=== PATIENT | male | born 1975 | race Caucasian/White ===

== ENCOUNTER 2018-09-25 10:59 | Emergency (ER) | payer SELFPAY ==
[~2018-09-25] VITALS: Ht 167.6 cm; Wt 98.4 kg
[2018-09-25 11:23] VITALS: BP 118/65; PULSE 74; RESP 20; Ht 167.6 cm; Wt 98.4 kg
[2018-09-25] MEDS ORDERED: LIDOCAINE 1% (MDV) 20 ML INJ SC ONE (14:30)
[2018-09-25] MEDS ORDERED: ACETAMINOPHEN 325 MG TAB PO ONE (14:30)
[2018-09-25] MEDS ORDERED: DOXY100T21 PO (14:51)
[2018-09-25] MEDS ORDERED: ACET1TAB40 PO (14:51)
--- NOTE | 2018-09-25 14:55 | ERD ---
ER Documentation Chief Complaint Chief Complaint Complains of left leg and foot pain x 3 days HPI 43-year-old male presents with pain in his left foot for the last few days which has been worsening. He has had similar pain and a possible bump on the plantar aspect of the left foot for last few months. He is thinking he may have stepped on a small piece of glass. He did have an x-ray originally which did not show foreign body but symptoms have worsened. ROS All systems reviewed and are negative except as per history of present illness. Medications Home Meds Active Scripts Doxycycline Monohydrate* (Doxycycline Monohydrate*) 100 Mg Tablet, 100 MG PO BID for 7 Days, TAB Prov:MANJULA DEGROOT MD 09/25/18 Acetaminophen with Codeine (Acetaminophen-Cod #3 Tablet) 1 Each Tablet, 1 TAB PO Q6H PRN for PAIN, #7 TAB Prov:MANJULA DEGROOT MD 09/25/18 PMhx/Soc Medical and Surgical Hx: pt denies Medical Hx, pt denies Surgical Hx FmHx Family History: No diabetes, No coronary disease, No other Physical Exam Vitals Vital Signs Date Temp Pulse Resp B/P (MAP) Pulse Ox O2 O2 Flow FiO2 Time Delivery Rate 09/25/18 99.7 74 20 118/65 96 11:23 (82) Physical Exam Const: No acute distress Head: Atraumatic Eyes: Normal Conjunctiva ENT: Normal External Ears, Nose and Mouth. Neck: Full range of motion. No meningismus. Resp: Clear to auscultation bilaterally Cardio: Regular rate and rhythm, no murmurs Abd: Soft, non tender, non distended. Normal bowel sounds Skin: No petechiae or rashes Back: No midline or flank tenderness Ext: No cyanosis, or edema. Tender with non-erythematous swelling on the plantar aspect left foot around the second metatarsal phalangeal joint area. Neur: Awake and alert Psych: Normal Mood and Affect Results 24 hrs Current Medications Medications Dose Sig/Manuela Start Time Status Last (Trade) Ordered Route PRN Stop Time Admin Dose Reason Admin 650 mg ONCE ONCE 09/25/18 DC 09/25/18 Acetaminophen PO 14:30 14:16 (Tylenol 09/25/18 14:31 Tab) Lidocaine 20 ml ONCE ONCE 09/25/18 DC 09/25/18 (Xylocaine SC 14:30 14:17 1% (Mdv) 20 09/25/ 14:31 ml) Procedures/MDM Patient presents with swelling and tenderness on the bottom of his left foot for the last few months. Clinically it is consistent with retained subcutaneous foreign body or plantar wart. No significant signs of infection. X-ray left foot 3V Interpreted by me: Bones: No fracture Joints: No dislocation Foreign body: None. Impression-normal left foot x-ray Empiric debridement and exploration will be performed with patient consent. Procedure note-left foot was prepped with Betadine. 2 cc lidocaine was used for local filtration. Callus was debrided with a scalpel. The lesion was debrided down to subcutaneous area until punctate bleeding was obtained. Area was probed without appreciable findings to suggest foreign body. She tolerated procedure well and the wound was dressed. Patient presents with left foot pain of uncertain etiology. Differential is most likely subclinical small foreign body not seen on x-ray plan at work. He will discharged home with warm soaks, recommendations for podiatry evaluation for persistent symptoms. There is no signs of cellulitis, fracture, di slocation, obvious retained radiopaque foreign body. Departure Diagnosis: Primary Impression: Foot pain Laterality: left Qualified Codes: M79.672 - Pain in left foot Condition: Stable Patient Instructions: Foreign Body, Soft Tissue [Not Removed], Plantar Warts Referrals: JAMISON MAGAÑA ABID N DPM HAGOPJANIAN, ARMEN DPM Additional Instructions: Uncertain cause of symptoms. May be subclinical foreign body or plantar wart. Recommend podiatry for persistent symptoms. Warm soaks at home and return for redness, fevers, new symptoms. MANJULA DEGROOT MD Sep 25, 2018 14:55
== END 2018-09-25 15:26 | disposition home or self-care (01) ==
LOC: FTE 10:59
DX: M79.672 Pain in left foot (principal)

== ENCOUNTER 2019-01-02 11:44 | Emergency (ER) | payer MEDICAID ==
[~2019-01-02] VITALS: Wt 94.2 kg
[~2019-01-02 11:44] MED LIST: ACET1TAB40 PO; DOXY100T21 PO
[2019-01-02 11:47] VITALS: BP 132/71; PULSE 75; RESP 17
[2019-01-02] MEDS ORDERED: LIDOCAINE 1%/EPI 30 ML INJ INJ STA (12:48)
[2019-01-02] MEDS ORDERED: ACETAMINOPHEN 325 MG TAB PO ONE (13:00)
[2019-01-02] MEDS ORDERED: ACET1TAB40 PO (13:54)
[2019-01-02] MEDS ORDERED: CEPH-443 PO (13:54)
--- NOTE | 2019-01-02 13:57 | ERD ---
ER Documentation Chief Complaint Chief Complaint right foot pain x1 month, redness reported HPI 43-year-old male presents with some redness and pain in the area of the right foot worsening over the last 1 to 2 weeks. He was seen by me previously and had an additional similar complaint of possible foreign body sensation in the bottom of the foot. We are unable to locate any foreign body by x-ray or blunt dissection. He may have expressed a small amount of glass as the wound healed on the previous lesion. This lesion feels similar to the previous complaint although in a different area. Patient denies known puncture wound or foreign body. Tetanus up-to-date. ROS All systems reviewed and are negative except as per history of present illness. Medications Home Meds Active Scripts Cephalexin* (Keflex*) 500 Mg Capsule, 500 MG PO QID for 5 Days, CAP Prov:MANJULA DEGROOT MD 01/02/19 Acetaminophen with Codeine (Acetaminophen-Cod #3 Tablet) 1 Each Tablet, 1 TAB PO Q6H PRN for PAIN, #10 TAB Prov:MANJULA DEGROOT MD 01/02/19 Doxycycline Monohydrate* (Doxycycline Monohydrate*) 100 Mg Tablet, 100 MG PO BID for 7 Days, TAB Prov:MANJULA DEGROOT MD 09/25/18 Acetaminophen with Codeine (Acetaminophen-Cod #3 Tablet) 1 Each Tablet, 1 TAB PO Q6H PRN for PAIN, #7 TAB Prov:MANJULA DEGROOT MD 09/25/18 PMhx/Soc Medical and Surgical Hx: pt denies Medical Hx, pt denies Surgical Hx Hx Alcohol Use: No Hx Substance Use: No Hx Tobacco Use: No Smoking Status: Never smoker Physical Exam Vitals Vital Signs Date Temp Pulse Resp B/P (MAP) Pulse Ox O2 O2 Flow FiO2 Time Delivery Rate 01/02/19 98.0 75 17 132/71 98 11:47 (91) Physical Exam Const: No acute distress Head: Atraumatic Eyes: Normal Conjunctiva ENT: Normal External Ears, Nose and Mouth. Neck: Full range of motion. No meningismus. Resp: Clear to auscultation bilaterally Cardio: Regular rate and rhythm, no murmurs Abd: Soft, non tender, non distended. Normal bowel sounds Skin: No petechiae or rashes Back: No midline or flank tenderness Ext: No cyanosis, or edema. Right foot approximately 1 cm palpable tender area on the lateral aspect in the midfoot. No erythema or streaking. No obvious foreign body. Is possible a small dark-colored subcutaneous foreign body. Neur: Awake and alert Psych: Normal Mood and Affect Results 24 hrs Current Medications Medications Dose Sig/Manuela Start Time Status Last (Trade) Ordered Route PRN Stop Time Admin Dose Reason Admin 650 mg ONCE ONCE 01/02/19 DC 01/02/19 Acetaminophen PO 13:00 12:55 (Tylenol 01/02/19 13:01 Tab) Lidocaine/ 30 ml ONCE STAT 01/02/19 DC Epinephrine INJ 12:48 (Xylocaine 01/02/19 12:49 1%/ Epi (Pf)) Procedures/MDM X-ray right foot 3V Interpreted by me: Bones: No fracture Joints: No dislocation Foreign body: None impression-normal right foot x-ray without visualized foreign body. Patient requests empiric dissection to evaluate for non-radiopaque foreign body. Procedure note-right foot was prepped with Betadine. 2 cc of lidocaine with epinephrine was used for local infiltration. A scalpel was used to incise the area of swelling and discoloration. No obvious foreign body was appreciated after blunt dissection. Wound was dressed and patient tolerated procedure well. Presents with right foot pain in a localized area of swelling comes consistent with likely occult foreign body with local reaction. There is no signs of infection or abscess. Clinically it does not appear to be a plantar wart. I am recommending warm soaks and further warm care as any small occult lesion may express given the defect created with dissection. He will be discharged home with a small course of Tylenol 3, Keflex and recommendations for 2-day wound check, otherwise warm soaks and elevation at home. He should return for fevers, redness, bleeding, new worsening symptoms. Follow-up with primary doctor for further evaluation treatment for persistent symptoms despite treatment today. Departure Diagnosis: Primary Impression: Foot pain Laterality: right Qualified Codes: M79.671 - Pain in right foot Condition: Stable Patient Instructions: Foreign Body, Soft Tissue (Removed), Foreign Body, Soft Tissue [Not Removed] Additional Instructions: No obvious foreign body removed. Recheck within the next week for worsening redness, pain. May be a small foreign body which may resolve spontaneously with warm soaks. MANJULA DEGROOT MD January 02, 2019 13:57
== END 2019-01-02 14:15 | disposition home or self-care (01) ==
LOC: FTE 11:44
DX: M79.671 Pain in right foot (principal)
CPT/HCPCS: 73630; Z7502; Z7610